=== PATIENT | female | born 1965 | race Two or more races ===

== ENCOUNTER 2018-01-18 08:32 | Outpatient (CLI) | payer OTHER | END 2018-01-18 09:24 | disposition home or self-care (01) | LOC: RAD 501 08:32 | DX: J45.41 Moderate persistent asthma with (acute) exacerbation (principal) ==

== ENCOUNTER 2018-05-10 16:29 | Emergency (ER) | payer OTHER ==
[~2018-05-10] VITALS: Ht 165.1 cm; Wt 61.2 kg
[2018-05-10] MEDS ORDERED: SYNTHROID88 MCG (16:51)
== END 2018-05-10 22:18 | disposition home or self-care (01) ==
LOC: ER 16:29
DX: B34.9 Viral infection, unspecified (principal)